=== PATIENT | male | born 1965 | race Caucasian/White ===

== ENCOUNTER → 2020-02-21 | Outpatient (CLI) | payer SELFPAY ==
[2020-02-21 14:14] VITALS: BMI 42.7
--- NOTE | 2020-02-21 14:31 | RAD_ITS ---
STUDY: X-RAY - LEFT HUMERUS REASON FOR EXAM: Male, 54 years old. FX FOLLOW UP TECHNIQUE: 4 view(s) of the humerus. COMPARISON: None. FINDINGS: Nondisplaced transverse fracture through the midshaft of the humerus. I suspect a pathological fracture. There is no demonstrated soft tissue abnormality. RAD/Humerus min 2 Views IMPRESSION: Findings suggestive of a nondisplaced transverse fracture through the midshaft of the humerus suggestive of a pathological fracture. Electronically Signed: Talib Ruiz, at 15:53 EDT , Service support ,
== END | disposition home or self-care (01) ==
LOC: HPRAD 14:31
PROVIDERS: Referring Provider Orthopaedic Surgery; Visit Provider Orthopaedic Surgery
DX: S42.309A Unspecified fracture of shaft of humerus, unspecified arm, initial encounter for closed fracture (principal)
CPT/HCPCS: 73060

== ENCOUNTER 2024-07-06 10:25 | Emergency (ER) | payer OTHER, SELFPAY ==
[2024-07-06 10:26] VITALS: BP 159/85; PULSE 59; RESP 17; TEMP 36.2; O2SAT 100; BMI 33.5
--- NOTE | 2024-07-06 10:46 | CT_ITS ---
HISTORY: Pain. TECHNIQUE: Helically acquired images were obtained of the abdomen and pelvis without oral or IV contrast. A radiation dose optimization technique was used for this scan. 515 images. COMPARISON: None. FINDINGS: LOWER CHEST: Lung bases clear. BOWEL: Bowel including appendix nondilated. No focal pericolonic inflammatory change. PERITONEUM: No significant free fluid. LIVER: 15.8 cm in length. GALLBLADDER/BILIARY TREE: Gallbladder present. SPLEEN: 15 cm in length. PANCREAS/ADRENAL GLANDS: Unremarkable. KIDNEYS AND URETERS: 1-2 mm right upper pole renal calculi without hydronephrosis. 2 mm left upper, 3 mm left interpolar, and 4 mm left lower pole calculi. Mild left perinephric stranding and hydroureteronephrosis secondary to a 2 mm calculus in the very distal ureterovesical junction. VESSELS: No abdominal aortic aneurysm. PELVIC ORGANS: Mild prostate calcifications. ABDOMINAL WALL: Small fat-containing inguinal hernias. BONES: Intact. CT/Abdomen/Pelvis without Cont IMPRESSION: Mild left hydronephrosis secondary to a 2 mm UVJ calculus. Bilateral nephrolithiasis. Mild splenomegaly. Electronically Signed: Alisha Marshall MD at 11:47 EST ,
--- NOTE | 2024-07-06 10:48 | EX.ED.DYSGE1 ---
HPI History of Present Illness Chief Complaint: Abd Pain Narrative Narrative: Chief complaint and HPI: Suprapubic abdominal pain, difficulty urinating. 58-year-old male with past medical history of kidney stones presents for evaluation of suprapubic abdominal pain and difficulty urinating. Patient states 3 weeks ago he developed 1 day of dysuria. He states that he took 1 pill of amoxicillin and the pain subsided. He states this morning he woke up with suprapubic abdominal pain and difficulty urinating. He denies any dysuria but states that he has a weaker stream. No history of BPH. He denies any fever, chills, shortness of breath, chest pain, diarrhea, constipation, hematuria emesis. Does endorse some nausea. Denies any penile or testicular pain. Review of systems: See HPI Medications: As listed on the chart Allergies: As listed on the chart PFSH: Per chart Vital signs: As listed on the chart. Reviewed. Physical exam: Gen: A&O x3, NAD Head: Normocephalic, atraumatic Eyes: No sclera icterus, conjunctiva clear ENT: Moist mucous membranes Neck: Trachea midline, No JVD CV: RRR, no murmurs, no peripheral edema Resp: Lungs CTA BL, no w/r/c GI: Abd soft, non-distended, tender to palpation in the suprapubic region, no r/r/g : Circumcised penis. No penile tenderness or discharge. No penile or testicular swelling. Normal lie and position of the testicles. No testicular tenderness, masses, or skin changes. Cremasteric reflexes intact and equal bilaterally. No rashes. No palpable hernias. No CVA tenderness. Musc: Full ROM, no deformity Skin: Warm, dry Neuro: Alert, oriented, grossly intact, sensation intact Psych: Cooperative, appropriate mood and affect [facility] Home Medications ?Medication ?Instructions ?Recorded ?Last Taken ?Type diphenhydramine HCl 25 mg capsule 25 mg PO QHS 02/21/20 Unknown History (Benadryl) ibuprofen 200 mg capsule 200 mg PO Q6H PRN 02/21/20 Unknown History ondansetron 4 mg disintegrating 4 mg PO Q8H PRN PRN Nausea #10 tabs 07/06/24 Unknown Rx tablet oxycodone-acetaminophen 5 mg-325 1 tab PO Q6H PRN pain 3 days #12 07/06/24 Unknown Rx mg tablet (Percocet) tabs Allergy/AdvReac Type Severity Reaction Status Date / Time No Known Allergies Allergy Verified 07/06/24 10:29 Surgical History (Updated 02/21/20 @ 14:34 by Praveena Isabel) H/O shoulder surgery H/O hernia repair Social History (Updated 02/21/20 @ 15:[address] Stevie Bundy, DO) household members: spouse Smoking Status: Former smoker Smokeless tobacco user: snuff alcohol intake: current what type of physical activity do you participate in: none do you feel safe at home: Yes EXAM Physical Exam Const Vital Signs: 07/06/24 10:26 07/06/24 12:50 07/06/24 13:25 Temperature 97.1 F L 98.4 F Temperature Source Temporal Pulse Rate 59 L 81 74 Respiratory Rate 17 16 16 Blood Pressure 159/85 H 129/87 H Blood Pressure Mean 109 101 Pulse Ox 100 100 100 Oxygen Delivery Method Room Air MDM MDM MDM Narrative Medical decision making narrative: 58-year-old male with past medical history of kidney stones presents for evaluation of suprapubic abdominal pain and difficulty urinating. Differential diagnosis includes but is not limited to urinary retention, UTI, urolithiasis, BPH. Onset of symptoms today. Patient states he has been eating and drinking. Patient urinated on arrival and postvoid residual was obtained. Patient is not retaining urine. Morphine and Zofran ordered for symptoms. Abdominal pain workup ordered including CT abdomen pelvis without contrast. CBC shows mild leukocytosis of 12.8. No anemia. BMP shows mild renal insufficiency of 1.31. I do not have previous labs to compare. NS bolus ordered. UA negative for UTI but positive for blood. Patient does have 2+ bacteria we will send for culture but not treat given that he has no nitrates, leukoesterase, WBCs. Patient does have some mild ketones which is consistent with mild dehydration. CT abdomen pelvis shows mild left hydronephrosis secondary to a 2 mm UVJ calculus. Bilateral nephrolithiasis. Patient's pain is likely secondary to his urolithiasis. On reevaluation, patient is still endorsing pain. IV Dilaudid ordered. Patient is updated of all his results and the findings. On reevaluation the second time, patient's pain is controlled. Patient is comfortable with discharging home. Patient will be given a prescription for pain medicine as well as Zofran as needed. Return back to the ED if symptoms change or worsen. Follow-up with urology and PCP. He confirmed understanding of the plan. Patient stable to discharge home. Impression: 1. Left urolithiasis with a 2 mm UVJ calculus 2. Mild left hydronephrosis 3. Bilateral nephrolithiasis 4. Dehydration Lab Data Labs: Laboratory Results - last 24 hr 07/06/24 07/06/24 11:00 11:05 WBC 12.8 H RBC 5.14 Hgb 15.3 Hct 45.1 MCV 87.7 MCH 29.8 MCHC 33.9 RDW Std Deviation 42.2 RDW Coeff of Camacho 13.1 Plt Count 215 MPV 10.1 Immature Gran % (Auto) 0.400 Neut % (Auto) 90.1 H Lymph % (Auto) 6.0 L [place] % (Auto) 3.2 Eos % (Auto) 0.1 Baso % (Auto) 0.2 Absolute Neuts (auto) 11.5 H Absolute Lymphs (auto) 0.76 L Nucleated RBC % 0 Sodium 135 L Potassium 4.2 Chloride 104 Carbon Dioxide 23.0 Anion Gap 8 BUN 23 H Creatinine 1.31 H Estim Creat Clear Calc 74.99 Est GFR (MDRD) Af Amer 72 Est GFR (MDRD) Non-Af 60 BUN/Creatinine Ratio 17.6 Glucose 139 H Calcium 8.9 Urine Color Yellow Urine Clarity Sl. Cloudy Urine pH 5.0 Ur Specific Toney 1.015 Urine Protein 15 H Urine Glucose (UA) Normal Urine Ketones 15 H Urine Occult Blood 250 H Urine Nitrite Negative Urine Bilirubin Negative Urine Urobilinogen Normal Ur Leukocyte Esterase Negative Urine RBC 0-5 SEEN Urine WBC 0 SEEN Ur Squamous Epith Cells 0 SEEN Urine Bacteria 2+ Urine Mucus 0 SEEN Radiography Diagnostic Testing: Clinical Impression(s) from Imaging Studies Abdomen/Pelvis CT 07/06/24 10:46 IMPRESSION: Mild left hydronephrosis secondary to a 2 mm UVJ calculus. Bilateral nephrolithiasis. Mild splenomegaly. Electronically Signed: Alisha Marshall MD at 11:47 EST Reading Location ID and State: [facility] / [place] Tel , Service support , Discharge Plan Triage Chief Complaint: Abd Pain ED Provider: Urban Maloney Dx/Rx/DC Orders Clinical Impression: Urolithiasis Instructions: Kidney Stones: Are You at Risk?, Understanding Kidney Stones, Preventing Kidney Stones, ED Kidney Stone with Pain Prescriptions: New oxycodone-acetaminophen [Percocet] 5-325 mg tablet 1 tab PO Q6H PRN (Reason: pain) 3 Days Qty: 12 0RF ondansetron 4 mg tablet,disintegrating 4 mg PO Q8H PRN PRN (Reason: Nausea) Qty: 10 0RF No Action ibuprofen 200 mg capsule 200 mg PO Q6H PRN diphenhydramine HCl [Benadryl] 25 mg capsule 25 mg PO QHS [facility] Referrals: Walt Echavarria MD [Med Staff - Active Staff] - 3-5 Days [facility] [Primary Care Provider] - 3-5 Days Activity Restrictions/Additional Instructions: Return back to the ED if symptoms change or worsen. Follow-up with urology and PCP Print Language: Bel[place]ian Disposition Disposition: Home, Self Care Discharge Date/Time: 07/06/24 13:25
[2024-07-06] MEDS: Morphine 2 MG/ML Syringe IV (10:55)
[2024-07-06] MEDS: Ondansetron 4 MG/2 ML Vial IV (10:55)
[2024-07-06 11:16] LABS: Absolute Lymphocyte Count 0.76 X10^3/uL (0.83-4.51); Absolute Neutrophil Count 11.5 X10^3/uL (2.0-7.7); Basophil# 0.03 X10^3/uL; Basophil% 0.2 % (0-1); Eosinophil# 0.01 X10^3/uL; Eosinophils% 0.1 % (0-5); Hematocrit 45.1 % (40-54); Hemoglobin 15.3 g/dL (13.0-16.5); Lymphocyte # 0.76 X10^3/ul (0.83-4.51); Mean Corp Hgb Conc 33.9 g/dL (32-36); Mean Corpuscular Hgb 29.8 pg (27.0-32.0); Mean Corpuscular Volume 87.7 fL (80-94); Mean Platelet Vol. 10.1 fl (6.2-12.0); Monocyte# 0.41 X10^3/uL; Monocyte% 3.2 % (0-10); NRBC Flagged by Analyzer 0 % (0-5); Neutrophil # 11.51 X10^3/uL (2.7-7.7); Neutrophil % 90.1 % (47-70); Platelet Count 215 K/mm3 (150-450); RBC Distribution Width CV 13.1 % (11.6-14.6); RBC Distribution Width SD 42.2 fl (35.1-43.9); Red Blood Count 5.14 M/mm3 (4.6-6.2); White Blood Count 12.8 K/mm3 (4.4-11.0)
[2024-07-06 11:16] LABS: Mucous, Urine 0 SEEN /hpf (<or=2+); Squamous Epithelial Cells - UA 0 SEEN /hpf (0-5); White Blood Cells 0 SEEN /hpf (0-5)
[2024-07-06 11:18] LABS: Color, Urine Yellow (Yellow); Glucose, Dipstick Normal (Normal); Ketone-Dipstick 15 mg/dl (Negative); Leukocyte Esterase-Dipstick Negative /ul (Negative); Nitrite-Dipstick Negative (Negative); Occult Blood-Urine 250 /ul (Negative); Protein-Dipstick 15 mg/dl (Negative); Specific Gravity, Urine 1.015 (1.002-1.030); Urine Bilirubin Dipstick Negative (Negative); Urine Clarity Sl. Cloudy (Clear); Urine Urobilinogen Normal (Normal)
[2024-07-06 11:25] LABS: Bacteria 2+ /hpf (None Seen); Red Blood Cells-Urine 0-5 SEEN /hpf (0-5)
[2024-07-06 11:27] LABS: Anion Gap 8 (5-15); BUN 23 mg/dL (7-18); BUN/Creat Ratio 17.6 RATIO (10-20); Calcium,Total 8.9 mg/dL (8.5-10.1); Chloride 104 mmol/L (98-107); Creatinine, Serum 1.31 mg/dL (0.70-1.30); EST Glomerular Filtration Rate 60 mL/min (>60); Est Glom Filt Rate - Afr Amer 72 mL/min (>60); Estimated Creatinine Clearance 74.99 ml/min; Glucose 139 mg/dL (74-106); Potassium 4.2 mmol/L (3.5-5.1); Sodium Level 135 mmol/L (136-145)
[2024-07-06] MEDS: 0.9% Normal Saline (1000mL) 1,000 ML 999 ML IV (11:48)
[2024-07-06] MEDS: HYDROmorphone 1 MG/ML Syringe IV (12:20)
[2024-07-06 12:50] VITALS: PULSE 81; RESP 16; O2SAT 100
[2024-07-06 13:25] VITALS: BP 129/87; PULSE 74; RESP 16; TEMP 36.9; O2SAT 100
== END 2024-07-06 13:25 | disposition home or self-care (01) ==
PROVIDERS: Emergency Provider Surgery; Visit Provider Surgery
DX: N13.2 Hydronephrosis with renal and ureteral calculous obstruction (principal); E86.0 Dehydration; Z87.891 Personal history of nicotine dependence; Z87.442 Personal history of urinary calculi
CPT/HCPCS: 74176; 80048; 81001; 85025; 87086; 96361; 96374; 96375; 99283; A4216; J2405